=== PATIENT | female | born 1930 | race Two or more races ===

== ENCOUNTER → 2021-07-10 | Outpatient (CLI) | payer OTHER ==
[~2021-07-10] MED LIST: ALEN70TA74 PO; AMLO-489 PO; ASPI-247 PO; ATOR80TA PO; CAR125T PO; GABA250S2 PO; LISI40TA11 PO; METF-490 PO; PHEN100C PO; SITA50TA PO
[2021-07-10 11:46] LABS: Urine Bacteria NONE SEEN /hpf (None Seen); Urine Blood Negative /uL (Negative); Urine Specific Gravity 1.007 (1.001-1.035); Urine WBC 11 /hpf (0 - 5)
[2021-07-10 13:52] LABS: Basophils # (auto) 0.1 10 ^3/uL (0-0.2); Basophils % (auto) 0.9 % (0.0-2.0); Eosinophils # (auto) 0.1 10 ^3/uL (0-0.8); Eosinophils % (auto) 0.8 % (0.0-7.0); Hematocrit 37.3 % (36.0-46.0); Hemoglobin 12.6 g/dL (12.2-16.2); Lymphocytes # (auto) 1.3 10 ^3/uL (0.4-5.4); Lymphocytes % (auto) 18.4 % (10.0-50.0); Mean Corpuscular Hemoglobin 31.6 pg (28.0-32.0); Mean Corpuscular Hgb Conc. 33.6 g/dL (32.0-36.0); Mean Corpuscular Volume 93.8 fL (80.0-100.0); Monocytes # (auto) 0.5 10 ^3/uL (0-1.3); Monocytes % (auto) 7.6 % (0.0-12.0); Neutrophils # (auto) 5.1 10 ^3/uL (1.6-8.6); Neutrophils % (auto) 72.3 % (37.0-80.0); Red Blood Cells 3.98 10^6/uL (4.0-5.20); Red Cell Distribution Width 15.1 % (11.8-14.3)
[2021-07-10 14:26] LABS: Potassium 4.4 mmol/L (3.5-5.1)
[2021-07-10 14:53] LABS: Albumin 3.7 g/dL (3.4-5.0); BUN/Creatinine Ratio 25.8; Bilirubin, Total 0.3 mg/dL (0.2-1.0); Calcium 10.1 mg/dL (8.5-10.1); Total Protein 7.4 g/dL (6.4-8.2)
== END | disposition home or self-care (01) ==
LOC: LAB 09:16
PROVIDERS: ATTEND Student in an Organized Health Care Education/Training Program
DX: E11.9 Type 2 diabetes mellitus without complications (principal)
CPT/HCPCS: 36415; 80053; 80061; 81001; 82043; 83036; 84443; 85025

== ENCOUNTER 2022-01-11 10:28 | Inpatient (IN) | payer OTHER ==
[~2022-01-11] VITALS: Ht 165.1 cm; Wt 49.9 kg
[2022-01-11] MEDS ORDERED: SODIUM CHLORIDE 0.9% 1,000 ML IV ONE ×2 (10:45)
[2022-01-11 11:16] LABS: Basophils # (auto) 0.1 10 ^3/uL (0-0.2); Basophils % (auto) 1.1 % (0.0-2.0); Eosinophils # (auto) 0 10 ^3/uL (0-0.8); Eosinophils % (auto) 0.3 % (0.0-7.0); Hematocrit 36.4 % (36.0-46.0); Hemoglobin 11.9 g/dL (12.2-16.2); Lymphocytes % (auto) 14.3 % (10.0-50.0); Mean Corpuscular Hemoglobin 30.3 pg (28.0-32.0); Mean Corpuscular Hgb Conc. 32.5 g/dL (32.0-36.0); Mean Corpuscular Volume 93.3 fL (80.0-100.0); Monocytes # (auto) 0.5 10 ^3/uL (0-1.3); Monocytes % (auto) 6.7 % (0.0-12.0); Neutrophils # (auto) 5.7 10 ^3/uL (1.6-8.6); Neutrophils % (auto) 77.6 % (37.0-80.0); Nucleated Red Blood Cells % 0.1 %; Red Blood Cells 3.91 10^6/uL (4.0-5.20); Red Cell Distribution Width 14.7 % (11.8-14.3); White Blood Cell 7.3 10^3/uL (4.4-10.8)
[2022-01-11 11:22] LABS: Potassium 4.5 mmol/L (3.5-5.1)
[2022-01-11 11:39] LABS: Albumin 3.3 g/dL (3.4-5.0); Bilirubin, Total 0.2 mg/dL (0.2-1.0); Calcium 9.4 mg/dL (8.5-10.1); Total Protein 6.8 g/dL (6.4-8.2)
[2022-01-11 13:35] LABS: Urine Bacteria FEW /hpf (None Seen); Urine Blood Negative /uL (Negative); Urine Specific Gravity 1.014 (1.001-1.035); Urine WBC 2 /hpf (0 - 5)
[2022-01-11] MEDS ORDERED: ONDANSETRON HCL 4 MG/2 ML VIAL IV PRN (15:30)
[2022-01-11] MEDS ORDERED: NITROGLYCERIN 0.4 MG SL TAB SL PRN (15:30)
[2022-01-11] MEDS ORDERED: MORPHINE SULFATE INJ 2 MG/ml SYRG IV PRN (15:30)
[2022-01-11] MEDS: SODIUM CHLORIDE 0.9% 1,000 ML IV SCH (15:49)
[2022-01-11] MEDS: PHENYTOIN SODIUM 100 MG CAP PO SCH (22:35)
[2022-01-12 06:51] LABS: Basophils # (auto) 0.1 10 ^3/uL (0-0.2); Basophils % (auto) 1.4 % (0.0-2.0); Eosinophils # (auto) 0.1 10 ^3/uL (0-0.8); Eosinophils % (auto) 1.3 % (0.0-7.0); Hematocrit 31.7 % (36.0-46.0); Hemoglobin 10.7 g/dL (12.2-16.2); Lymphocytes # (auto) 1.4 10 ^3/uL (0.4-5.4); Lymphocytes % (auto) 20.4 % (10.0-50.0); Mean Corpuscular Hemoglobin 31.2 pg (28.0-32.0); Mean Corpuscular Hgb Conc. 33.8 g/dL (32.0-36.0); Mean Corpuscular Volume 92.2 fL (80.0-100.0); Monocytes # (auto) 0.5 10 ^3/uL (0-1.3); Monocytes % (auto) 7.7 % (0.0-12.0); Neutrophils # (auto) 4.9 10 ^3/uL (1.6-8.6); Neutrophils % (auto) 69.2 % (37.0-80.0); Red Blood Cells 3.44 10^6/uL (4.0-5.20); Red Cell Distribution Width 14.2 % (11.8-14.3)
[2022-01-12 06:52] LABS: Calcium 9.1 mg/dL (8.5-10.1)
[2022-01-12 06:55] LABS: BUN/Creatinine Ratio 18.8
[2022-01-12] MEDS: SODIUM CHLORIDE 0.9% 1,000 ML IV SCH (09:44)
[2022-01-12] MEDS: PHENYTOIN SODIUM 100 MG CAP PO SCH ×2 (09:57→22:13)
[2022-01-12] MEDS ORDERED: DEXTROSE (50%) 50ML SYRG IV PRN (11:00)
[2022-01-12] MEDS: ACCU-CHEK COMFORT CURVE STRIP VI SCH ×3 (11:32→22:13)
[2022-01-12] MEDS: InsuLIN REG 1unit/0.01ml Soln (100units/ml) SC SCH ×3 (11:49→22:14)
[2022-01-12] MEDS: ASPirin 81 mg TAB PO SCH (13:39)
[2022-01-12] MEDS ORDERED: CLOPIDOGREL BISULFATE 75 MG TAB PO ONE (15:45)
[2022-01-12 16:39] VITALS: BP 155/100
[2022-01-12 18:42] LABS: Cholesterol 141 mg/dL (< 200); HDL Cholesterol 64 mg/dL (40-59); LDL Cholesterol 72 mg/dL (< 100); Triglycerides 112 mg/dL (< 150)
[2022-01-12 22:00] VITALS: BP 151/67
[2022-01-12] MEDS: ATORVASTATIN 20 MG TAB PO SCH (22:13)
[2022-01-13 05:00] VITALS: BP 157/72
[2022-01-13] MEDS: ACCU-CHEK COMFORT CURVE STRIP VI SCH ×4 (06:10→22:00)
[2022-01-13] MEDS: InsuLIN REG 1unit/0.01ml Soln (100units/ml) SC SCH ×4 (06:12→23:05)
[2022-01-13 09:00] VITALS: BP 145/68
[2022-01-13] MEDS: PHENYTOIN SODIUM 100 MG CAP PO SCH ×2 (09:51→22:00)
[2022-01-13] MEDS: ASPirin 81 mg TAB PO SCH (09:51)
[2022-01-13] MEDS: CLOPIDOGREL BISULFATE 75 MG TAB PO SCH (09:52)
[2022-01-13 13:00] VITALS: BP 134/58
[2022-01-13 17:11] VITALS: BP 145/67
[2022-01-13 20:00] VITALS: BP 135/72
[2022-01-13 22:00] VITALS: BP 135/72
[2022-01-13] MEDS: ATORVASTATIN 20 MG TAB PO SCH (22:00)
[2022-01-14 05:00] VITALS: BP 107/57
[2022-01-14] MEDS: ACCU-CHEK COMFORT CURVE STRIP VI SCH ×4 (06:49→21:57)
[2022-01-14] MEDS: InsuLIN REG 1unit/0.01ml Soln (100units/ml) SC SCH ×4 (06:57→21:59)
[2022-01-14 09:00] VITALS: BP_SYST 140; BP_SYST 151; BP_DIAS 64; BP_DIAS 80
[2022-01-14] MEDS: ASPirin 81 mg TAB PO SCH (09:18)
[2022-01-14] MEDS: CLOPIDOGREL BISULFATE 75 MG TAB PO SCH (09:18)
[2022-01-14] MEDS: PHENYTOIN SODIUM 100 MG CAP PO SCH ×2 (09:19→21:56)
[2022-01-14 13:00] VITALS: BP 165/75
[2022-01-14 16:42] VITALS: BP 155/77
[2022-01-14] MEDS: ATORVASTATIN 20 MG TAB PO SCH (21:56)
[2022-01-14 22:00] VITALS: BP 179/73
[2022-01-14] MEDS ORDERED: traMADol HCL 50 MG TAB PO PRN (23:15)
[2022-01-15] MEDS ORDERED: LISINOPRIL 10 MG TAB PO ONE (00:30)
[2022-01-15] MEDS ORDERED: hydrALAZINE HCL 25 MG TAB PO ONE (00:30)
[2022-01-15] MEDS ORDERED: IBUPROFEN 400 MG TAB PO ONE (00:30)
[2022-01-15 04:48] LABS: Basophils # (auto) 0 10 ^3/uL (0-0.2); Basophils % (auto) 0.3 % (0.0-2.0); Eosinophils # (auto) 0 10 ^3/uL (0-0.8); Eosinophils % (auto) 0.1 % (0.0-7.0); Hematocrit 35.4 % (36.0-46.0); Hemoglobin 11.6 g/dL (12.2-16.2); Lymphocytes # (auto) 1.3 10 ^3/uL (0.4-5.4); Lymphocytes % (auto) 10.1 % (10.0-50.0); Mean Corpuscular Hemoglobin 29.9 pg (28.0-32.0); Mean Corpuscular Hgb Conc. 32.7 g/dL (32.0-36.0); Mean Corpuscular Volume 91.5 fL (80.0-100.0); Monocytes # (auto) 1.1 10 ^3/uL (0-1.3); Monocytes % (auto) 8.8 % (0.0-12.0); Neutrophils # (auto) 10.4 10 ^3/uL (1.6-8.6); Neutrophils % (auto) 80.7 % (37.0-80.0); Red Blood Cells 3.87 10^6/uL (4.0-5.20); Red Cell Distribution Width 14.4 % (11.8-14.3); White Blood Cell 12.9 10^3/uL (4.4-10.8)
[2022-01-15 05:00] VITALS: BP 126/60
[2022-01-15 05:04] LABS: Albumin 2.8 g/dL (3.4-5.0); Calcium 8.7 mg/dL (8.5-10.1); Magnesium 1.8 mg/dL (1.6-2.6); Potassium 4.1 mmol/L (3.5-5.1)
[2022-01-15 05:09] LABS: BUN/Creatinine Ratio 21.1; Bilirubin, Total 0.3 mg/dL (0.2-1.0); Total Protein 6.7 g/dL (6.4-8.2)
[2022-01-15] MEDS ORDERED: CLOP75TA70 PO (06:28)
[2022-01-15] MEDS ORDERED: LEVO500T31 PO (06:28)
[2022-01-15] MEDS ORDERED: ERGOCALCIFEROL 50,000 UNIT(1.25MG) CAP PO SCH (06:45)
[2022-01-15] MEDS: ACCU-CHEK COMFORT CURVE STRIP VI SCH ×2 (06:46→12:04)
[2022-01-15] MEDS: InsuLIN REG 1unit/0.01ml Soln (100units/ml) SC SCH ×2 (06:47→12:37)
[2022-01-15 08:00] VITALS: BP 125/57
[2022-01-15] MEDS ORDERED: hydrALAZINE HCL 25 MG TAB PO PRN (08:30)
[2022-01-15 09:05] VITALS: BP 125/57
[2022-01-15] MEDS: PHENYTOIN SODIUM 100 MG CAP PO SCH (09:49)
[2022-01-15] MEDS: ASPirin 81 mg TAB PO SCH (09:50)
[2022-01-15] MEDS: CLOPIDOGREL BISULFATE 75 MG TAB PO SCH (09:50)
[2022-01-15] MEDS ORDERED: LISINOPRIL 10 MG TAB PO SCH (10:00)
[2022-01-15] MEDS ORDERED: levoFLOXacin 500MG 100 ML IV SCH (10:00)
[2022-01-15 13:02] VITALS: BP 126/60
[2022-01-16] MEDS ORDERED: levoFLOXacin 250MG 50 ML IV SCH (10:00)
== END 2022-01-15 14:54 | disposition home health service (06) | DRG 64 ==
LOC: ER 10:28 → EDBD 10:28 → TELE 15:35 → TELE-WESTW 01-12 16:07
PROVIDERS: ADMIT Nurse Practitioner Family; ATTEND Internal Medicine
DX: I63.9 Cerebral infarction, unspecified (principal); G93.41 Metabolic encephalopathy; I21.A1 Myocardial infarction type 2; G40.209 Localization-related (focal) (partial) symptomatic epilepsy and epileptic syndromes with complex partial seizures, not intractable, without status epilepticus; E11.9 Type 2 diabetes mellitus without complications; E78.5 Hyperlipidemia, unspecified; I11.9 Hypertensive heart disease without heart failure; I70.0 Atherosclerosis of aorta; R47.02 Dysphasia; Z20.822 Contact with and (suspected) exposure to COVID-19; F17.200 Nicotine dependence, unspecified, uncomplicated; R47.01 Aphasia; Z91.81 History of falling; Z79.84 Long term (current) use of oral hypoglycemic drugs; Z79.899 Other long term (current) drug therapy; Z86.73 Personal history of transient ischemic attack (TIA), and cerebral infarction without residual deficits; Z82.49 Family history of ischemic heart disease and other diseases of the circulatory system; Z79.82 Long term (current) use of aspirin; Z79.02 Long term (current) use of antithrombotics/antiplatelets
CPT/HCPCS: 36415; 70450; 70551; 71045; 80048; 80053; 80061; 80185; 81001; 82306; 82962; 83036; 83735; 84484; 85025; 92610; 93005; 93306; 93886; 96360; 96361; 97116; 97163; 97530; G0378; J1815; J1956; J2405

== ENCOUNTER 2022-07-14 23:20 | Inpatient (IN) | payer OTHER ==
[~2022-07-14] VITALS: Ht 157.5 cm; Wt 57.3 kg
[~2022-07-14 23:20] MED LIST changes: -ASPI-247 PO; +CLOP75TA70 PO; +LEVO500T31 PO
[2022-07-15 01:11] LABS: Basophils # (auto) 0 10 ^3/uL (0-0.2); Basophils % (auto) 0.4 % (0.0-2.0); Eosinophils # (auto) 0 10 ^3/uL (0-0.8); Hemoglobin 10.1 g/dL (12.2-16.2); Lymphocytes # (auto) 0.6 10 ^3/uL (0.4-5.4); Lymphocytes % (auto) 5.6 % (10.0-50.0); Mean Corpuscular Hemoglobin 31.4 pg (28.0-32.0); Mean Corpuscular Hgb Conc. 33.5 g/dL (32.0-36.0); Mean Corpuscular Volume 93.7 fL (80.0-100.0); Monocytes % (auto) 8.9 % (0.0-12.0); Neutrophils # (auto) 9.8 10 ^3/uL (1.6-8.6); Neutrophils % (auto) 85.1 % (37.0-80.0); Red Blood Cells 3.21 10^6/uL (4.0-5.20); Red Cell Distribution Width 14.8 % (11.8-14.3); White Blood Cell 11.5 10^3/uL (4.4-10.8)
[2022-07-15 01:21] LABS: INR 0.92 (0.9-1.15); Partial Thromboplastin Time 30.8 sec (24.6-33.4)
[2022-07-15 01:23] LABS: Alanine Aminotransferase 21 U/L (13-56); Albumin 3.1 g/dL (3.4-5.0); Anion Gap 7 (5-15); BUN/Creatinine Ratio 29.4; Blood Alcohol < 3.0 mg/dL (0-5); Blood Urea Nitrogen 25 mg/dL (7-18); Calcium 8.7 mg/dL (8.5-10.1); Carbon Dioxide 24 mmol/L (21-32); Chloride 106 mmol/L (98-107); GFR African American 81 mL/min; GFR Non-African American 67 mL/min; Glucose 241 mg/dL (74-106); Lipase 108 U/L (73-393); Potassium 4.5 mmol/L (3.5-5.1); Sodium 137 mmol/L (136-145)
[2022-07-15 01:25] LABS: Alkaline Phosphatase 72 U/L (45-117); Aspartate Aminotransferase 12 U/L (15-37); Bilirubin, Total 0.4 mg/dL (0.2-1.0); Total Protein 6.5 g/dL (6.4-8.2)
[2022-07-15] MEDS ORDERED: MORPHINE SULFATE 4 MG/ML SYR/VIAL IV ONE (02:15)
[2022-07-15] MEDS ORDERED: ONDANSETRON HCL 4 MG/2 ML VIAL IV ONE (02:15)
[2022-07-15] MEDS ORDERED: ONDANSETRON HCL 4 MG/2 ML VIAL IV PRN (04:30)
[2022-07-15] MEDS ORDERED: DOCUSATE SOD 100 MG CAP PO PRN (04:30)
[2022-07-15] MEDS ORDERED: NITROGLYCERIN 0.4 MG SL TAB SL PRN (04:30)
[2022-07-15] MEDS ORDERED: MORPHINE SULFATE INJ 2 MG/ml SYRG IV PRN ×2 (04:30)
[2022-07-15] MEDS ORDERED: DEXTROSE (50%) 50ML SYRG IV PRN (04:30)
[2022-07-15] MEDS: SODIUM CHLORIDE 0.9% 1,000 ML IV SCH (09:05)
[2022-07-15] MEDS: ACCU-CHEK COMFORT CURVE STRIP VI SCH ×4 (09:05→22:00)
[2022-07-15] MEDS: InsuLIN REG 1unit/0.01ml Soln (100units/ml) SC SCH ×3 (09:06→17:48)
[2022-07-15 09:16] LABS: Urine Blood Negative /uL (Negative); Urine Specific Gravity 1.014 (1.001-1.035)
[2022-07-15] MEDS ORDERED: ZINC SULFATE 220mg CAP or TAB PO SCH (10:00)
[2022-07-15] MEDS ORDERED: levoFLOXacin 250MG 50 ML IV SCH (10:00)
[2022-07-15] MEDS ORDERED: levoFLOXacin 500MG 100 ML IV SCH (10:00)
[2022-07-15] MEDS ORDERED: levoFLOXacin 500MG 100 ML IV ONE (10:00)
[2022-07-15] MEDS: ASCORBIC ACID 500 MG TAB PO SCH ×2 (11:39→22:46)
[2022-07-15] MEDS: CARVEDILOL 12.5 MG TAB PO SCH ×2 (11:41→22:48)
[2022-07-15] MEDS: ENOXAPARIN SOD 40 MG/0.4 ML SYRINGE SC SCH (11:42)
[2022-07-15] MEDS: hydrALAZINE HCL 20 MG/ML VL IV PRN (16:22)
[2022-07-15 22:00] VITALS: BP 168/77
[2022-07-15] MEDS ORDERED: InsuLIN REG 1unit/0.01ml Soln (100units/ml) SC SCH (22:00)
[2022-07-15] MEDS ORDERED: METF-371 PO (22:24)
[2022-07-16] VITALS (7 sets, daily range): BP systolic 110–162; BP diastolic 43–81
[2022-07-16] MEDS: hydrALAZINE HCL 20 MG/ML VL IV PRN (06:15)
[2022-07-16] MEDS: InsuLIN REG 1unit/0.01ml Soln (100units/ml) SC SCH ×4 (06:18→21:53)
[2022-07-16] MEDS: ACCU-CHEK COMFORT CURVE STRIP VI SCH ×4 (06:18→21:37)
[2022-07-16 06:26] LABS: Basophils # (auto) 0.1 10 ^3/uL (0-0.2); Basophils % (auto) 0.9 % (0.0-2.0); Eosinophils # (auto) 0.1 10 ^3/uL (0-0.8); Eosinophils % (auto) 0.7 % (0.0-7.0); Hematocrit 28.8 % (36.0-46.0); Lymphocytes # (auto) 0.9 10 ^3/uL (0.4-5.4); Lymphocytes % (auto) 10.5 % (10.0-50.0); Mean Corpuscular Hemoglobin 32.1 pg (28.0-32.0); Mean Corpuscular Hgb Conc. 34.7 g/dL (32.0-36.0); Mean Corpuscular Volume 92.7 fL (80.0-100.0); Monocytes # (auto) 0.9 10 ^3/uL (0-1.3); Monocytes % (auto) 10.3 % (0.0-12.0); Neutrophils # (auto) 6.7 10 ^3/uL (1.6-8.6); Neutrophils % (auto) 77.6 % (37.0-80.0); Red Cell Distribution Width 15.1 % (11.8-14.3); White Blood Cell 8.7 10^3/uL (4.4-10.8)
[2022-07-16 06:38] LABS: Potassium 4.2 mmol/L (3.5-5.1)
[2022-07-16 06:56] LABS: Albumin 2.9 g/dL (3.4-5.0); BUN/Creatinine Ratio 39.7; Bilirubin, Total 0.4 mg/dL (0.2-1.0); Calcium 8.8 mg/dL (8.5-10.1); Total Protein 6.6 g/dL (6.4-8.2)
[2022-07-16] MEDS ORDERED: PROPOFOL 10 MG/ML 20 ML IV ONE (08:43)
[2022-07-16] MEDS ORDERED: KETOROLAC TROMETH 30 MG/ML 1ML VIAL ONE (08:44)
[2022-07-16] MEDS ORDERED: DexAMETHasone SOD PHOS 10MG/1ML VIAL INJ ONE (08:44)
[2022-07-16] MEDS ORDERED: LIDOCAINE 1% (LOCAL ANESTH.) PF 5ml SDV ONE (08:44)
[2022-07-16] MEDS ORDERED: ONDANSETRON HCL 4 MG/2 ML VIAL ONE (08:44)
[2022-07-16] MEDS ORDERED: GLYCOPYRROLATE 0.2 MG/ML 1ML VIAL ONE (08:44)
[2022-07-16] MEDS: CARVEDILOL 12.5 MG TAB PO SCH ×2 (10:00→21:37)
[2022-07-16] MEDS ORDERED: levoFLOXacin 250MG 50 ML IV SCH (10:00)
[2022-07-16] MEDS: ENOXAPARIN SOD 40 MG/0.4 ML SYRINGE SC SCH (10:00)
[2022-07-16] MEDS ORDERED: DEXTROSE (50%) 50ML SYRG IV PRN (10:45)
[2022-07-16] MEDS ORDERED: ceFAZolin 1GM/50ML 100 ML IV ONE (10:55)
[2022-07-16] MEDS ORDERED: TRANEXAMIC ACID 20 ML ONE (11:01)
[2022-07-16] MEDS ORDERED: DexAMETHasone SOD PHOS 4 MG/1ML SDV INJ ONE (11:18)
[2022-07-16] MEDS ORDERED: BUPIVACAINE 0.5% P/F INJ 10 ML VIAL ONE (11:18)
[2022-07-16] MEDS ORDERED: fentaNYL CITRATE 100 MCG/2 ML VL ONE (12:05)
[2022-07-16] MEDS ORDERED: NALOXONE HCL 0.4 MG/ML VIAL IV PRN (12:45)
[2022-07-16] MEDS ORDERED: LABETALOL HCL 5 MG/ML 4ML SYRINGE IV PRN (12:45)
[2022-07-16] MEDS ORDERED: FLUMAZENIL 0.1 MG/ML INJ 10ML MDV IV PRN (12:45)
[2022-07-16] MEDS ORDERED: HYDROmorphone HCL 2 MG/ML VL/or syr IV PRN (12:45)
[2022-07-16] MEDS ORDERED: ePHEDrine SULFATE 50 MG/ML AMP IV PRN (12:45)
[2022-07-16] MEDS ORDERED: ONDANSETRON HCL 4 MG/2 ML VIAL IV PRN (12:45)
[2022-07-16] MEDS ORDERED: hydrALAZINE HCL 20 MG/ML VL IV PRN (12:45)
[2022-07-16] MEDS ORDERED: fentaNYL CITRATE 100 MCG/2 ML VL IV PRN (12:45)
[2022-07-16] MEDS ORDERED: HYDROmorphone HCL 2 MG/ML VL/or syr ONE (13:01)
[2022-07-16] MEDS: SODIUM CHLORIDE 0.9% 1,000 ML IV SCH ×2 (13:50→15:11)
[2022-07-16] MEDS ORDERED: ceFAZolin 2 GM in D5W 5% 100 ML IV SCH (14:00)
[2022-07-16] MEDS ORDERED: PHENYTOIN SODIUM 100 MG CAP PO ONE (15:00)
[2022-07-16] MEDS ORDERED: LORazepam 2MG/ML-1ML VIAL IV PRN (15:45)
[2022-07-16] MEDS: ceFAZolin 2 GM in D5W 5% 100 ML IV SCH (18:00)
[2022-07-16] MEDS: PHENYTOIN SODIUM 100 MG CAP PO SCH (21:37)
[2022-07-17] MEDS: ceFAZolin 2 GM in D5W 5% 100 ML IV SCH (01:49)
[2022-07-17 05:00] VITALS: BP 128/51
[2022-07-17 05:34] LABS: Basophils # (auto) 0 10 ^3/uL (0-0.2); Basophils % (auto) 0.3 % (0.0-2.0); Eosinophils # (auto) 0 10 ^3/uL (0-0.8); Eosinophils % (auto) 0.5 % (0.0-7.0); Hematocrit 23.2 % (36.0-46.0); Hemoglobin 8.1 g/dL (12.2-16.2); Lymphocytes % (auto) 11.1 % (10.0-50.0); Mean Corpuscular Hemoglobin 32.3 pg (28.0-32.0); Mean Corpuscular Hgb Conc. 34.7 g/dL (32.0-36.0); Mean Corpuscular Volume 93.1 fL (80.0-100.0); Monocytes # (auto) 1.4 10 ^3/uL (0-1.3); Monocytes % (auto) 14.5 % (0.0-12.0); Neutrophils # (auto) 6.9 10 ^3/uL (1.6-8.6); Neutrophils % (auto) 73.6 % (37.0-80.0); Red Cell Distribution Width 14.7 % (11.8-14.3); White Blood Cell 9.4 10^3/uL (4.4-10.8)
[2022-07-17 05:49] LABS: BUN/Creatinine Ratio 42.4; Calcium 8.3 mg/dL (8.5-10.1); Potassium 4.4 mmol/L (3.5-5.1)
[2022-07-17] MEDS: SODIUM CHLORIDE 0.9% 1,000 ML IV SCH (06:06)
[2022-07-17] MEDS: ACCU-CHEK COMFORT CURVE STRIP VI SCH ×4 (06:26→21:20)
[2022-07-17] MEDS: InsuLIN REG 1unit/0.01ml Soln (100units/ml) SC SCH ×4 (06:35→21:41)
[2022-07-17 09:00] VITALS: BP 121/40
[2022-07-17] MEDS: ENOXAPARIN SOD 40 MG/0.4 ML SYRINGE SC SCH (09:37)
[2022-07-17] MEDS: HYDROcodone-ACET 5/325MG TAB PO PRN ×2 (09:38→21:19)
[2022-07-17] MEDS: PHENYTOIN SODIUM 100 MG CAP PO SCH ×2 (09:38→21:19)
[2022-07-17] MEDS: CARVEDILOL 12.5 MG TAB PO SCH ×2 (09:39→21:19)
[2022-07-17 13:05] VITALS: BP 113/43
[2022-07-17 16:25] VITALS: BP 126/64
[2022-07-17 22:22] VITALS: BP 129/54
[2022-07-18] VITALS (10 sets, daily range): BP systolic 111–149; BP diastolic 37–84
[2022-07-18] MEDS: ACETAMINOPHEN 325 MG TAB PO PRN ×2 (05:10→20:09)
[2022-07-18 05:47] LABS: Basophils # (auto) 0.1 10 ^3/uL (0-0.2); Basophils % (auto) 0.7 % (0.0-2.0); Eosinophils # (auto) 0.1 10 ^3/uL (0-0.8); Eosinophils % (auto) 0.8 % (0.0-7.0); Neutrophils # (auto) 5.6 10 ^3/uL (1.6-8.6); White Blood Cell 7.8 10^3/uL (4.4-10.8)
[2022-07-18 05:49] LABS: Lymphocytes # (auto) 1.1 10 ^3/uL (0.4-5.4); Lymphocytes % (auto) 13.5 % (10.0-50.0); Mean Corpuscular Hemoglobin 32.5 pg (28.0-32.0); Mean Corpuscular Hgb Conc. 35.2 g/dL (32.0-36.0); Mean Corpuscular Volume 92.4 fL (80.0-100.0); Monocytes # (auto) 1.1 10 ^3/uL (0-1.3); Monocytes % (auto) 13.4 % (0.0-12.0); Neutrophils % (auto) 71.6 % (37.0-80.0); Red Blood Cells 2.17 10^6/uL (4.0-5.20); Red Cell Distribution Width 14.5 % (11.8-14.3)
[2022-07-18 05:52] LABS: Calcium 8.1 mg/dL (8.5-10.1); Potassium 4.1 mmol/L (3.5-5.1)
[2022-07-18] MEDS: InsuLIN REG 1unit/0.01ml Soln (100units/ml) SC SCH ×4 (06:40→21:59)
[2022-07-18] MEDS: ACCU-CHEK COMFORT CURVE STRIP VI SCH ×4 (06:45→21:59)
[2022-07-18] MEDS: PHENYTOIN SODIUM 100 MG CAP PO SCH ×2 (09:22→21:54)
[2022-07-18] MEDS: ENOXAPARIN SOD 40 MG/0.4 ML SYRINGE SC SCH (09:22)
[2022-07-18] MEDS: CARVEDILOL 12.5 MG TAB PO SCH ×2 (09:23→21:54)
[2022-07-19 05:00] VITALS: BP 144/63
[2022-07-19 06:06] LABS: Basophils # (auto) 0.1 10 ^3/uL (0-0.2); Basophils % (auto) 0.9 % (0.0-2.0); Eosinophils # (auto) 0.1 10 ^3/uL (0-0.8); Eosinophils % (auto) 1.7 % (0.0-7.0); Hematocrit 25.4 % (36.0-46.0); Hemoglobin 8.9 g/dL (12.2-16.2); Lymphocytes % (auto) 12.1 % (10.0-50.0); Mean Corpuscular Hemoglobin 32.3 pg (28.0-32.0); Mean Corpuscular Hgb Conc. 35.2 g/dL (32.0-36.0); Mean Corpuscular Volume 91.7 fL (80.0-100.0); Monocytes % (auto) 12.7 % (0.0-12.0); Neutrophils # (auto) 5.7 10 ^3/uL (1.6-8.6); Neutrophils % (auto) 72.6 % (37.0-80.0); Red Blood Cells 2.77 10^6/uL (4.0-5.20); Red Cell Distribution Width 14.3 % (11.8-14.3); White Blood Cell 7.9 10^3/uL (4.4-10.8)
[2022-07-19 06:33] LABS: BUN/Creatinine Ratio 51.9; Calcium 8.7 mg/dL (8.5-10.1); Potassium 3.9 mmol/L (3.5-5.1)
[2022-07-19] MEDS: InsuLIN REG 1unit/0.01ml Soln (100units/ml) SC SCH ×4 (06:46→21:55)
[2022-07-19] MEDS: ACCU-CHEK COMFORT CURVE STRIP VI SCH ×4 (06:46→21:55)
[2022-07-19 08:15] VITALS: BP 136/81
[2022-07-19 08:30] VITALS: BP 136/81
[2022-07-19] MEDS: ENOXAPARIN SOD 40 MG/0.4 ML SYRINGE SC SCH (10:00)
[2022-07-19] MEDS: PHENYTOIN SODIUM 100 MG CAP PO SCH ×2 (10:04→21:54)
[2022-07-19] MEDS: HYDROcodone-ACET 5/325MG TAB PO PRN ×2 (10:04→15:22)
[2022-07-19] MEDS: CARVEDILOL 12.5 MG TAB PO SCH ×2 (10:04→21:54)
[2022-07-19 13:02] VITALS: BP 138/54
[2022-07-19 16:38] VITALS: BP 154/52
[2022-07-19 22:00] VITALS: BP_SYST 148; BP_SYST 152; BP_DIAS 60; BP_DIAS 63
[2022-07-19] MEDS: hydrALAZINE HCL 20 MG/ML VL IV PRN (23:37)
[2022-07-20 00:50] VITALS: BP 120/55
[2022-07-20 05:00] VITALS: BP 139/59
[2022-07-20] MEDS: ACETAMINOPHEN 325 MG TAB PO PRN (05:07)
[2022-07-20] MEDS: ACCU-CHEK COMFORT CURVE STRIP VI SCH ×4 (06:45→22:06)
[2022-07-20] MEDS: InsuLIN REG 1unit/0.01ml Soln (100units/ml) SC SCH ×4 (06:46→22:10)
[2022-07-20 09:28] VITALS: BP 114/53
[2022-07-20] MEDS: CARVEDILOL 12.5 MG TAB PO SCH ×2 (09:28→22:06)
[2022-07-20] MEDS: PHENYTOIN SODIUM 100 MG CAP PO SCH ×2 (09:29→22:05)
[2022-07-20] MEDS: ENOXAPARIN SOD 40 MG/0.4 ML SYRINGE SC SCH (09:29)
[2022-07-20 12:51] VITALS: BP 125/51
[2022-07-20 17:15] VITALS: BP 134/59
[2022-07-20 22:00] VITALS: BP 147/60
[2022-07-21] MEDS: ACETAMINOPHEN 325 MG TAB PO PRN ×3 (01:40→17:10)
[2022-07-21 05:00] VITALS: BP 131/70
[2022-07-21] MEDS: ACCU-CHEK COMFORT CURVE STRIP VI SCH ×4 (06:33→21:46)
[2022-07-21] MEDS: InsuLIN REG 1unit/0.01ml Soln (100units/ml) SC SCH ×4 (06:35→21:47)
[2022-07-21 09:05] VITALS: BP 122/58
[2022-07-21] MEDS: PHENYTOIN SODIUM 100 MG CAP PO SCH ×2 (09:29→21:46)
[2022-07-21] MEDS: CARVEDILOL 12.5 MG TAB PO SCH ×2 (09:29→21:46)
[2022-07-21] MEDS: ENOXAPARIN SOD 40 MG/0.4 ML SYRINGE SC SCH (09:30)
[2022-07-21 13:00] VITALS: BP 94/51
[2022-07-21] MEDS: HYDROcodone-ACET 5/325MG TAB PO PRN (13:22)
[2022-07-21 17:00] VITALS: BP 134/56
[2022-07-21] MEDS: metFORMIN HYDROCHLORIDE 850 MG TAB PO SCH (18:01)
[2022-07-21 22:00] VITALS: BP 128/52
[2022-07-22 05:00] VITALS: BP 138/59
[2022-07-22] MEDS: ACCU-CHEK COMFORT CURVE STRIP VI SCH ×4 (06:43→21:46)
[2022-07-22] MEDS: InsuLIN REG 1unit/0.01ml Soln (100units/ml) SC SCH ×4 (06:46→21:45)
[2022-07-22] MEDS: metFORMIN HYDROCHLORIDE 850 MG TAB PO SCH ×2 (08:35→18:07)
[2022-07-22 09:00] VITALS: BP 110/65
[2022-07-22] MEDS: ACETAMINOPHEN 325 MG TAB PO PRN ×2 (09:23→21:50)
[2022-07-22] MEDS: PHENYTOIN SODIUM 100 MG CAP PO SCH ×2 (10:10→21:43)
[2022-07-22] MEDS: CARVEDILOL 12.5 MG TAB PO SCH ×2 (10:10→21:44)
[2022-07-22] MEDS: ENOXAPARIN SOD 40 MG/0.4 ML SYRINGE SC SCH (10:10)
[2022-07-22 12:36] VITALS: BP 118/53
[2022-07-22 16:34] VITALS: BP 133/51
[2022-07-22 22:00] VITALS: BP 139/56
[2022-07-23] MEDS: ACETAMINOPHEN 325 MG TAB PO PRN (04:04)
[2022-07-23 05:00] VITALS: BP 141/54
[2022-07-23] MEDS: ACCU-CHEK COMFORT CURVE STRIP VI SCH ×2 (06:06→11:30)
[2022-07-23] MEDS: InsuLIN REG 1unit/0.01ml Soln (100units/ml) SC SCH ×2 (06:09→11:48)
[2022-07-23] MEDS: PHENYTOIN SODIUM 100 MG CAP PO SCH (08:52)
[2022-07-23] MEDS: metFORMIN HYDROCHLORIDE 850 MG TAB PO SCH (08:52)
[2022-07-23] MEDS: CARVEDILOL 12.5 MG TAB PO SCH (08:53)
[2022-07-23] MEDS: ENOXAPARIN SOD 40 MG/0.4 ML SYRINGE SC SCH (08:54)
[2022-07-23 09:09] VITALS: BP 126/75
[2022-07-23] MEDS ORDERED: DOCU-94 PO (10:33)
[2022-07-23] MEDS ORDERED: HYDR-4902 PO (10:33)
[2022-07-23 12:50] VITALS: BP 94/48
[2022-07-23 13:22] VITALS: BP_SYST 107; BP_SYST 126; BP_DIAS 63; BP_DIAS 75
== END 2022-07-23 14:07 | disposition home or self-care (01) | DRG 481 ==
LOC: EDBD 23:20 → ER 23:20 → OVERFLOW 07-15 04:39 → CENTRAL 07-15 21:00
PROVIDERS: ADMIT Nurse Practitioner Family; ATTEND Internal Medicine
PROC: 0QS606Z Reposition Right Upper Femur with Intramedullary Internal Fixation Device, Open Approach (ICD-10-PCS; principal; 2022-07-16 11:23)
PROC: 30233N1 Transfusion of Nonautologous Red Blood Cells into Peripheral Vein, Percutaneous Approach (ICD-10-PCS; 2022-07-18)
DX: S72.141A Displaced intertrochanteric fracture of right femur, initial encounter for closed fracture (principal); E44.1 Mild protein-calorie malnutrition; N39.0 Urinary tract infection, site not specified; M47.812 Spondylosis without myelopathy or radiculopathy, cervical region; W18.30XA Fall on same level, unspecified, initial encounter; I10 Essential (primary) hypertension; E88.09 Other disorders of plasma-protein metabolism, not elsewhere classified; E78.5 Hyperlipidemia, unspecified; E11.65 Type 2 diabetes mellitus with hyperglycemia; D72.829 Elevated white blood cell count, unspecified; Z20.822 Contact with and (suspected) exposure to COVID-19; D64.9 Anemia, unspecified; G40.909 Epilepsy, unspecified, not intractable, without status epilepticus; Y92.009 Unspecified place in unspecified non-institutional (private) residence as the place of occurrence of the external cause; Z86.73 Personal history of transient ischemic attack (TIA), and cerebral infarction without residual deficits; Z79.84 Long term (current) use of oral hypoglycemic drugs; Z88.0 Allergy status to penicillin; Y93.89 Activity, other specified; Y99.8 Other external cause status; Z68.23 Body mass index [BMI] 23.0-23.9, adult
CPT/HCPCS: 36415; 70450; 71250; 72125; 72170; 73502; 74176; 76000; 80048; 80053; 80185; 80320; 81003; 82607; 82962; 83036; 83690; 84443; 84484; 85018; 85025; 85610; 85730; 86850; 86900; 86901; 86920; 87426; 93005; 96361; 96365; 96375; 96376; 97110; 97116; 97163; 97530; A4565; G0378; J0690; J1100; J1815; J1885; J1956; J2405; J2704; J3490; J7060